=== PATIENT | female | born 1950 | race Caucasian/White ===

== ENCOUNTER 2018-06-21 06:07 | Day surgery (SDC) | payer OTHER, MEDICAID ==
[~2018-06-21] VITALS: Ht 160 cm; Wt 53.2 kg
[2018-06-21 06:37] LABS: BASOPHILS 0.6 % (0-2); EOSINOPHILS 2.7 % (0-7); HEMOGLOBIN 13.1 g/dL (12-16); IMMATURE GRANULOCYTES 0.1 % (0-5); LYMPHOCYTES 30.3 % (15-50); MCH 31.3 pg (26.0-34.0); MCHC 32.8 g/dL (31.0-37.0); MCV 95.5 fL (80.0-100.0); MEAN PLATELET VOLUME 9.6 fL (7.4-10.4); MONOCYTES 9.5 % (2-11); NEUTROPHILS 56.8 % (40-80); PLATELET COUNT 325 10x3/uL (130-400); RBC 4.19 10x6/uL (4.00-5.40); RDW 14.3 % (11.5-14.5); WBC 8.3 10x3/uL (4.8-10.8)
[2018-06-21 07:12] LABS: ANION GAP 16.1 mmol/L (8-16); CALCIUM 10.9 mg/dL (8.5-10.1); CARBON DIOXIDE 23.2 mmol/L (21.0-32.0); POTASSIUM - SERUM 4.3 mmol/L (3.5-5.1)
[2018-06-21 07:33] LABS: APTT 34.2 SECONDS (22.8-39.4)
[2018-06-21 07:43] LABS: INR 0.93 (0.85-1.17)
[2018-06-21] MEDS ORDERED: NIASPAN1000 MG PO (07:56)
[2018-06-21] MEDS ORDERED: LIDOCAINE 5 % O35 GM TOPICAL (07:57)
[2018-06-21] MEDS ORDERED: ELAVIL10 MG PO (07:57)
[2018-06-21] MEDS ORDERED: FENOFIBRATE160 MG PO (07:58)
[2018-06-21] MEDS ORDERED: CATAPRES0.3 MG PO (07:58)
[2018-06-21] MEDS ORDERED: COZAAR50 MG PO (07:58)
[2018-06-21] MEDS ORDERED: CARDIZEM CD240 MG PO (07:58)
[2018-06-21] MEDS ORDERED: OMEPRAZOLE20 M1 PO (07:59)
[2018-06-21] MEDS ORDERED: METFORMIN HCL500 M1 PO (07:59)
[2018-06-21] MEDS ORDERED: MESTINON60 MG PO (07:59)
[2018-06-21] MEDS ORDERED: ULTRAM50 MG PO (08:00)
[2018-06-21] MEDS ORDERED: NORVASC5 MG PO (08:00)
[2018-06-21] MEDS ORDERED: ZOCOR40 MG PO (08:00)
[2018-06-21] MEDS ORDERED: COMBIVENT RESPIM4 GM INH (08:00)
[2018-06-21] MEDS ORDERED: MAG-OX 400 MG400 MG PO (08:01)
[2018-06-21 08:07] VITALS: BP 173/76; Ht 160 cm; Wt 53.2 kg
--- NOTE | 2018-06-21 14:01 | OP ---
PATIENT NAME: KISHOR BENITES MEDICAL RECORD: [id number] :50 LOCATION:[facility] ADMISSION DATE: SURGEON: GARDENIA MADRIGAL DO DATE OF OPERATION: 06/21/2018 PROCEDURE: Colonoscopy with polypectomy. INDICATIONS FOR PROCEDURE: Stool DNA based colorectal cancer screen positive, hematochezia, irregular bowel habits. SCOPE: Olympus video pediatric colonoscope. MEDICATIONS: Propofol 500 mg IV per anesthesia. WITHDRAWAL TIME: 16 minutes. ESTIMATED BLOOD LOSS: Minimal. COMPLICATIONS: None. FINDINGS: Informed consent was given. The patient was made comfortable with the above medication. After reaching an adequate level of sedation by slow IV push, the patient was placed on her left side. A digital rectal examination was performed and was normal. The endoscope was then advanced under direct visualization through the rectum to the cecum, confirmed by the presence of the appendiceal orifice and ileocecal valve. The endoscope was slowly withdrawn and mucosa was carefully examined. There were 4 polyps visualized on today's examination. They were all benign appearing and sessile and ranged in size from 2-4 mm in diameter. One was located in the cecum. Three were located in the sigmoid colon. They were all removed completely with cauterization using hot forceps. There was evidence of severe diverticulosis involving the descending and sigmoid colon. There was no evidence of diverticulitis. Retroflexion was performed in the rectum with visualization of grade II internal hemorrhoids without bleeding. The endoscope was withdrawn from the patient. The patient tolerated the procedure well and there were no complications. IMPRESSION: 1. Four polyps as described above, removed using hot forceps. 2. Severe diverticulosis of the descending and sigmoid colon. 3. Grade II internal hemorrhoids without bleeding. PLAN AND RECOMMENDATIONS: 1. Discharge home when recovery parameters are met. 2. Follow up biopsy specimen results. 3. High fiber diet. 4. Supplement diet with 1 tablespoon of fiber daily. 5. Continue current medications. 6. Recall colonoscopy in 3-5 years for surveillance based on a personal history of polyps. 7. Notify the GI clinic if continued symptoms of hemorrhoids while on fiber supplementation. Can consider referral to surgery regarding the hemorrhoids. TRANSINT:[id number] Voice Confirmation ID: [id number] DOCUMENT ID: [id number] OPERATIVE REPORT [id number] KISHOR BENITES GARDENIA MADRIGAL DO at 1401 CC: [id number] DICTATION DATE: 06/21/18 0955 EMERGENCY MANAGEMENT CONSULTANT: 06/21/18 1133 [facility] 06/21/18 [id number] [place] [address]
== END 2018-06-21 10:50 | disposition home or self-care (01) ==
LOC: D.OPS 06:07
PROVIDERS: Anesthesiology; ATTEND Internal Medicine Gastroenterology
DX: K63.5 Polyp of colon (principal); K57.30 Diverticulosis of large intestine without perforation or abscess without bleeding; K64.1 Second degree hemorrhoids; Z01.812 Encounter for preprocedural laboratory examination

== ENCOUNTER 2018-06-28 05:44 | Day surgery (SDC) | payer OTHER, MEDICAID ==
[~2018-06-28] VITALS: Ht 160 cm; Wt 54.5 kg
[~2018-06-28 05:44] MED LIST: CARDIZEM CD240 MG PO; CATAPRES0.3 MG PO; COMBIVENT RESPIM4 GM INH; COZAAR50 MG PO; ELAVIL10 MG PO; FENOFIBRATE160 MG PO; LIDOCAINE 5 % O35 GM TOPICAL; MAG-OX 400 MG400 MG PO; MESTINON60 MG PO; METFORMIN HCL500 M1 PO; NIASPAN1000 MG PO; NORVASC5 MG PO; OMEPRAZOLE20 M1 PO; ULTRAM50 MG PO; ZOCOR40 MG PO
[2018-06-28 06:17] LABS: ANION GAP 14.6 mmol/L (8-16); CARBON DIOXIDE 25.6 mmol/L (21.0-32.0); CREATININE - SERUM 1.1 mg/dL (0.6-1.3); POTASSIUM - SERUM 4.2 mmol/L (3.5-5.1)
[2018-06-28 06:29] LABS: BASOPHILS 0.7 % (0-2); HEMATOCRIT 39.2 % (36.0-48.0); HEMOGLOBIN 12.8 g/dL (12-16); IMMATURE GRANULOCYTES 0.3 % (0-5); LYMPHOCYTES 35.8 % (15-50); MCH 31.3 pg (26.0-34.0); MCHC 32.7 g/dL (31.0-37.0); MCV 95.8 fL (80.0-100.0); MEAN PLATELET VOLUME 9.7 fL (7.4-10.4); MONOCYTES 8.6 % (2-11); NEUTROPHILS 51.6 % (40-80); PLATELET COUNT 352 10x3/uL (130-400); RBC 4.09 10x6/uL (4.00-5.40); RDW 14.3 % (11.5-14.5); WBC 7.3 10x3/uL (4.8-10.8)
[2018-06-28 07:00] VITALS: BP 136/64; Ht 160 cm; Wt 54.5 kg
--- NOTE | 2018-06-28 08:36 | NUR ---
0815-RECD TO ROOM [facility] 0820-DR MADRIGAL IN TO REPORT FINDINGS 0825-UP TO BATHROOM, VOIDS 0830-FULL LIQUIDS SERVED
--- NOTE | 2018-07-05 18:24 | OP ---
PATIENT NAME: KISHOR BENITES MEDICAL RECORD: [id number] :50 LOCATION:[facility] ADMISSION DATE: SURGEON: GARDENIA MADRIGAL DO DATE OF OPERATION: 06/28/2018 PROCEDURE: EGD with biopsies. 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 SCOPE: Olympus video gastroscope. MEDICATIONS: Propofol 260 mg IV per anesthesia. ESTIMATED BLOOD LOSS: Minimal. COMPLICATIONS: None. FINDINGS: Informed consent was given. The patient was made comfortable with the above medication. After reaching an adequate level of sedation by slow IV push, the patient was placed on her left side. The endoscope was advanced under direct visualization through the mouth to the second portion of the duodenum. The upper and middle thirds of the esophagus appeared normal. In the distal third of the esophagus, there was apparent Carmichael's esophagus present. This was a long segment Carmichael's located from approximately 28-32 cm from the incisors. There were a few squamous islands, but no obvious dysplasia findings on endoscopy. Multiple biopsies were taken at 28 cm, 30 cm, and 32 cm. The endoscope was then advanced into the stomach and retroflexed to view the cardia, where a medium sized sliding hiatal hernia was present. There were no associated ulcers or erosions with this hernia. In the stomach, there were scattered areas of erythema and congestion consistent with gastritis. Random cold forceps biopsies were taken to submit for histopathology and to rule out the presence of H. pylori. The endoscope was advanced beyond the pylorus into the duodenum, which appeared normal down to the second portion. The endoscope was then withdrawn from the patient. The patient tolerated the procedure well and there were no complications. IMPRESSION: 1. Carmichael's esophagus. This is a long segment from 28-32 cm with multiple squamous islands. There were no obvious dysplastic changes endoscopically. Multiple biopsies taken at 28, 30, and 32 cm from the incisors. 2. Medium size sliding hiatal hernia. 3. Gastritis. PLAN AND RECOMMENDATIONS: 1. Discharge home when recovery parameters are met. 2. GERD diet and reflux precautions. 3. Consider surgical repair of hiatal hernia. 4. Continue current medications including omeprazole 20 mg daily. 5. The patient will need a repeat EGD in 2 years unless pathology from biopsies taken today indicate otherwise. TRANSINT:[id number] Voice Confirmation ID: [id number] DOCUMENT ID: [id number] OPERATIVE REPORT [id number] KISHOR BENITES,GARDENIA Gallardo DO at 1824 CC: [id number] DICTATION DATE: 06/28/18 0808 INSPECTOR CHIEF: 06/28/18 1234 [facility] 06/28/18 [place] [id number] [place] [id number]
== END 2018-06-28 08:45 | disposition home or self-care (01) ==
LOC: D.OPS 05:44
PROVIDERS: Anesthesiology; ATTEND Internal Medicine Gastroenterology
DX: K22.70 Barrett's esophagus without dysplasia (principal); K44.9 Diaphragmatic hernia without obstruction or gangrene; K29.50 Unspecified chronic gastritis without bleeding; Z01.812 Encounter for preprocedural laboratory examination

== ENCOUNTER 2020-05-04 12:03 | Inpatient (IN) | payer MEDICARE, MEDICAID ==
[~2020-05-04] VITALS: Ht 160 cm; Wt 50.8 kg
[2020-05-04 12:33] LABS: BASOPHILS 0.1 % (0-2); EOSINOPHILS 0.3 % (0-7); HEMATOCRIT 35.8 % (36.0-48.0); HEMOGLOBIN 11.5 g/dL (12-16); IMMATURE GRANULOCYTES 0.5 % (0-5); LYMPHOCYTE ABS# 1.54 10x3/uL (1.18-3.74); LYMPHOCYTES 7.8 % (15-50); MCH 31.5 pg (26.0-34.0); MCHC 32.1 g/dL (31.0-37.0); MCV 98.1 fL (80.0-100.0); MEAN PLATELET VOLUME 8.9 fL (7.4-10.4); MONOCYTES 6.9 % (2-11); NEUTROPHIL ABS# 16.59 10x3/uL (1.56-6.13); NEUTROPHILS 84.4 % (40-80); PLATELET COUNT 392 10x3/uL (130-400); RBC 3.65 10x6/uL (4.00-5.40); RDW 13.4 % (11.5-14.5); WBC 19.7 10x3/uL (4.8-10.8)
[2020-05-04 12:43] LABS: CALC OSMOLALITY 276 mosm/kg (275-300); CARBON DIOXIDE 25.9 mmol/L (21.0-32.0); CHLORIDE - SERUM 100 mmol/L (98-107); CREATININE - SERUM 1.7 mg/dL (0.6-1.3); GLUCOSE 106 mg/dL (74-106); POTASSIUM - SERUM 3.7 mmol/L (3.5-5.1); SODIUM 137 mmol/L (136-145); UREA NITROGEN 21 mg/dL (7-18); eGFR NON AFRICAN AMERICAN 32 mL/min (90-120)
[2020-05-04 12:49] LABS: APTT 31.3 SECONDS (22.8-39.4)
[2020-05-04 12:50] LABS: INR 0.97 (0.85-1.17); PROTIME 11.9 SECONDS (11.6-15.0)
[2020-05-04 13:00] LABS: ALBUMIN 3.5 g/dL (3.4-5.0); ALKALINE PHOSPHATASE 65 U/L (30-120); ALT (SGPT) 18 U/L (10-68); BILIRUBIN - TOTAL 0.33 mg/dL (0.2-1.3); CKMB 0.3 U/L (0.0-3.6); CREATINE KINASE 52 UL (21-215); PROTEIN - SERUM 8.2 g/dL (6.4-8.2)
[2020-05-04 13:01] LABS: TROPONIN-I < 0.017 ng/mL (0.000-0.060)
--- NOTE | 2020-05-04 21:55 | NUR ---
ASKED PATIENT PER REQUEST OF DR. AMADOR IF SHE HAD A TETNUS SHOT IN THE LAST FIVE YEARS. SHE HAD NOT. ORDERING SHOT NOW.
[2020-05-05] VITALS (11 sets, daily range): BP systolic 111–183; BP diastolic 48–75
[2020-05-05 07:32] LABS: BASOPHILS 0.2 % (0-2); HEMATOCRIT 32.3 % (36.0-48.0); HEMOGLOBIN 10.2 g/dL (12-16); IMMATURE GRANULOCYTES 0.4 % (0-5); LYMPHOCYTES 10.6 % (15-50); MCH 30.7 pg (26.0-34.0); MCHC 31.6 g/dL (31.0-37.0); MCV 97.3 fL (80.0-100.0); MEAN PLATELET VOLUME 8.9 fL (7.4-10.4); NEUTROPHIL ABS# 8.08 10x3/uL (1.56-6.13); NEUTROPHILS 77.8 % (40-80); PLATELET COUNT 381 10x3/uL (130-400); RBC 3.32 10x6/uL (4.00-5.40); RDW 13.4 % (11.5-14.5)
[2020-05-05 07:43] LABS: WBC 10.4 10x3/uL (4.8-10.8)
[2020-05-05 07:58] LABS: ALBUMIN 2.7 g/dL (3.4-5.0); ANION GAP 14.9 mmol/L (8-16); BILIRUBIN - TOTAL 0.57 mg/dL (0.2-1.3); CALCIUM 10.6 mg/dL (8.5-10.1); CARBON DIOXIDE 23.9 mmol/L (21.0-32.0); CREATININE - SERUM 1.5 mg/dL (0.6-1.3); POTASSIUM - SERUM 3.8 mmol/L (3.5-5.1); PROTEIN - SERUM 6.9 g/dL (6.4-8.2)
--- NOTE | 2020-05-05 15:12 | NUR ---
TO MRI @ 1512. DRIVER/SALES WORKERS WILL TRANSPORT TO HER ROOM AFTER MRI.
[2020-05-05] MEDS ORDERED: GLUCOPHAGE500 MG PO (16:10)
[2020-05-05] MEDS ORDERED: FERROUS SULFAT325 MG PO (16:14)
[2020-05-06 00:41] VITALS: BP 110/67
[2020-05-06 04:39] VITALS: BP 142/61
--- NOTE | 2020-05-06 05:27 | NUR ---
I have reviewed this patient and I concur with the Shift Assessment completed by the Licensed Practical Nurse today this shift.
--- NOTE | 2020-05-06 08:00 | NUR ---
REC'D IN BED AWAKE AND ALERT. RESP EVEN AND UNLABORED WITH NO DISTRESS NOTED. CAN EXPRESS NEEDS AND WANT. NO C/O NOTED OR VOICED. ASSESSMENT COMPLETED. C/L IN REACH AT BEDSIDE.
[2020-05-06 08:32] VITALS: BP 156/72
[2020-05-06 09:48] LABS: BASOPHILS 0.3 % (0-2); EOSINOPHILS 1.3 % (0-7); HEMATOCRIT 32.7 % (36.0-48.0); HEMOGLOBIN 10.5 g/dL (12-16); IMMATURE GRANULOCYTES 0.3 % (0-5); LYMPHOCYTE ABS# 1.29 10x3/uL (1.18-3.74); MCH 31.3 pg (26.0-34.0); MCHC 32.1 g/dL (31.0-37.0); MCV 97.3 fL (80.0-100.0); MEAN PLATELET VOLUME 8.6 fL (7.4-10.4); MONOCYTES 8.1 % (2-11); NEUTROPHIL ABS# 7.62 10x3/uL (1.56-6.13); PLATELET COUNT 435 10x3/uL (130-400); RBC 3.36 10x6/uL (4.00-5.40); RDW 13.3 % (11.5-14.5); WBC 9.9 10x3/uL (4.8-10.8)
[2020-05-06 10:11] LABS: ALBUMIN 2.9 g/dL (3.4-5.0); ANION GAP 16.6 mmol/L (8-16); BILIRUBIN - TOTAL 0.38 mg/dL (0.2-1.3); CALCIUM 10.5 mg/dL (8.5-10.1); CARBON DIOXIDE 25.2 mmol/L (21.0-32.0); CREATININE - SERUM 1.5 mg/dL (0.6-1.3); POTASSIUM - SERUM 3.8 mmol/L (3.5-5.1); PROTEIN - SERUM 6.8 g/dL (6.4-8.2)
[2020-05-06 13:02] VITALS: BP 104/42
[2020-05-06 13:52] VITALS: Ht 160 cm; Wt 50.8 kg
[2020-05-06 18:57] VITALS: BP 129/46
[2020-05-06 20:44] VITALS: BP 139/53
[2020-05-07 04:49] VITALS: BP 115/45
[2020-05-07 08:44] VITALS: BP 98/53
[2020-05-07 11:38] LABS: BASOPHILS 0.4 % (0-2); EOSINOPHILS 1.8 % (0-7); HEMATOCRIT 29.3 % (36.0-48.0); HEMOGLOBIN 9.5 g/dL (12-16); IMMATURE GRANULOCYTES 0.6 % (0-5); LYMPHOCYTE ABS# 1.55 10x3/uL (1.18-3.74); LYMPHOCYTES 16.7 % (15-50); MCH 31.6 pg (26.0-34.0); MCHC 32.4 g/dL (31.0-37.0); MCV 97.3 fL (80.0-100.0); MEAN PLATELET VOLUME 8.7 fL (7.4-10.4); MONOCYTES 7.6 % (2-11); NEUTROPHIL ABS# 6.76 10x3/uL (1.56-6.13); NEUTROPHILS 72.9 % (40-80); PLATELET COUNT 413 10x3/uL (130-400); RBC 3.01 10x6/uL (4.00-5.40); RDW 13.4 % (11.5-14.5); WBC 9.3 10x3/uL (4.8-10.8)
[2020-05-07 11:58] LABS: ALBUMIN 2.6 g/dL (3.4-5.0); ANION GAP 15.4 mmol/L (8-16); BILIRUBIN - TOTAL 0.22 mg/dL (0.2-1.3); CALCIUM 9.9 mg/dL (8.5-10.1); CARBON DIOXIDE 19.8 mmol/L (21.0-32.0); CREATININE - SERUM 1.7 mg/dL (0.6-1.3); POTASSIUM - SERUM 4.2 mmol/L (3.5-5.1); PROTEIN - SERUM 5.7 g/dL (6.4-8.2)
[2020-05-07 12:30] VITALS: BP 90/47
[2020-05-07 17:24] VITALS: BP 105/43
--- NOTE | 2020-05-07 18:45 | NUR ---
PATIENT IN BED WITH IV INTACT. NO COMPLAINTS OR SIGNS OF DISTRESS. CALL LIGHT WITHIN REACH.
[2020-05-07 20:14] VITALS: BP 113/46
--- NOTE | 2020-05-07 23:15 | NUR ---
pt awake, alert lying in bed. ambualted to BR without assist, reports her right arm is much better today. denies any issues at thsi time
[2020-05-07 23:29] LABS: BILIRUBIN NEGATIVE (NEGATIVE); KETONE NEGATIVE (NEGATIVE); NITRITE NEGATIVE (NEGATIVE); UROBILINOGEN NORMAL mg/dL (< 2)
[2020-05-08] VITALS: BP 107/50
[2020-05-08 05:18] VITALS: BP 102/46
[2020-05-08 08:25] VITALS: BP 114/54
[2020-05-08 11:48] VITALS: BP 127/77
[2020-05-08 15:58] VITALS: BP 137/61
--- NOTE | 2020-05-08 18:45 | NUR ---
PATIENT IN BED WITH IV INTACT. NO COMPLAINTS OR SIGNS OF DISTRESS. RIGHT ARM ELEVATED ON PILLOW. CALL LIGHT WITHIN REACH.
[2020-05-08 20:00] VITALS: BP 128/59
--- NOTE | 2020-05-08 21:59 | NUR ---
Patient is lying comfortably in bed at this time. No pain nor distress noted. Bed in low position. Call berger in reach.
[2020-05-09 04:00] VITALS: BP 167/73
[2020-05-09 07:02] LABS: BASOPHILS 0.1 % (0-2); EOSINOPHILS 1.6 % (0-7); HEMATOCRIT 28.7 % (36.0-48.0); HEMOGLOBIN 9.1 g/dL (12-16); IMMATURE GRANULOCYTES 0.6 % (0-5); LYMPHOCYTE ABS# 1.49 10x3/uL (1.18-3.74); LYMPHOCYTES 10.8 % (15-50); MCHC 31.7 g/dL (31.0-37.0); MCV 97.6 fL (80.0-100.0); MEAN PLATELET VOLUME 8.5 fL (7.4-10.4); MONOCYTES 9.9 % (2-11); NEUTROPHIL ABS# 10.58 10x3/uL (1.56-6.13); PLATELET COUNT 441 10x3/uL (130-400); RBC 2.94 10x6/uL (4.00-5.40); RDW 13.4 % (11.5-14.5)
[2020-05-09 07:03] LABS: WBC 13.8 10x3/uL (4.8-10.8)
[2020-05-09 07:16] LABS: ALBUMIN 2.4 g/dL (3.4-5.0); BILIRUBIN - TOTAL 0.21 mg/dL (0.2-1.3); CALCIUM 10.1 mg/dL (8.5-10.1); CARBON DIOXIDE 22.1 mmol/L (21.0-32.0); CREATININE - SERUM 1.6 mg/dL (0.6-1.3); POTASSIUM - SERUM 4.1 mmol/L (3.5-5.1); PROTEIN - SERUM 6.4 g/dL (6.4-8.2)
[2020-05-09 08:33] VITALS: BP 157/76
[2020-05-09 12:30] VITALS: BP 150/82
--- NOTE | 2020-05-09 14:15 | NUR ---
Nutrition follow-up: visited with pt during breakfast Diet order: consistent CHO Pt reports good appetite; happy with meals provided No issues with chewing or swallowing PO intake 50-75% of meals since admit Labs reviewed WT: 112#; pt reports wt has been stable with no wt loss +BM Will continue to provide food choices and honor food preferences within diet restrictions. RDN follow-up: 05/14/20
[2020-05-09 16:52] VITALS: BP 148/79
[2020-05-09 20:16] VITALS: BP 170/71
[2020-05-10 01:19] VITALS: BP 129/52
--- NOTE | 2020-05-10 03:00 | NUR ---
I have reviewed this patient and I concur with the Shift Assessment completed by the Licensed Practical Nurse today this shift.
[2020-05-10 05:36] VITALS: BP 131/59
[2020-05-10 08:22] VITALS: BP 127/56
--- NOTE | 2020-05-10 09:00 | NUR ---
ASSESSMENT PER FLOW SHEET. PATIENT IS WITHOUT DISTRESS.MONITOR FOR NEEDS.CALL LIGHT IN REACH.
[2020-05-10 11:54] VITALS: BP 129/67
--- NOTE | 2020-05-10 16:04 | NUR ---
DENIES NEEDS AT PRESENT. CALL LIGHT IN REACH
[2020-05-10 17:05] VITALS: BP 147/61
--- NOTE | 2020-05-10 18:47 | NUR ---
PATIENT IS WITHOUT NEEDS,WITHOUT CHANGE. CONT PLAN OF CARE
--- NOTE | 2020-05-10 19:15 | NUR ---
RECEIVED REPORT, ASSUMED CARE, BREATHING EVEN UNLABORED, CALL LIGHT IN REACH, NO S/S OF DISTRESS NOTED, DENIES NEEDS, IV PATENT, ENCOURAGED PT TO NOTIFY STAFF OF ANY NEEDS
[2020-05-10 21:51] VITALS: BP 140/64
--- NOTE | 2020-05-11 00:24 | NUR ---
IV LEAKING, ATTEMPTED TO RESTART, PT REFUSED ANY MORE ATTEMPTS, PHYSICIAN PAGED, STATED TO LEAVE IV OUT UNTIL AM, WILL REEVALUATE IN AM
--- NOTE | 2020-05-11 01:04 | NUR ---
HEAT PACK APPLIED. ELEVATED ON PILLOWS
[2020-05-11 01:25] VITALS: BP 118/52
[2020-05-11 05:47] VITALS: BP 119/50
[2020-05-11 05:56] LABS: BASOPHILS 0.2 % (0-2); EOSINOPHILS 2.1 % (0-7); HEMOGLOBIN 8.8 g/dL (12-16); IMMATURE GRANULOCYTES 0.6 % (0-5); LYMPHOCYTE ABS# 1.57 10x3/uL (1.18-3.74); LYMPHOCYTES 14.6 % (15-50); MCH 30.7 pg (26.0-34.0); MCHC 31.4 g/dL (31.0-37.0); MCV 97.6 fL (80.0-100.0); MEAN PLATELET VOLUME 8.8 fL (7.4-10.4); MONOCYTES 9.2 % (2-11); NEUTROPHIL ABS# 7.89 10x3/uL (1.56-6.13); NEUTROPHILS 73.3 % (40-80); PLATELET COUNT 493 10x3/uL (130-400); RBC 2.87 10x6/uL (4.00-5.40); RDW 13.5 % (11.5-14.5); WBC 10.8 10x3/uL (4.8-10.8)
[2020-05-11 06:46] LABS: ALBUMIN 2.3 g/dL (3.4-5.0); ANION GAP 15.5 mmol/L (8-16); BILIRUBIN - TOTAL 0.21 mg/dL (0.2-1.3); CALCIUM 10.6 mg/dL (8.5-10.1); CARBON DIOXIDE 21.6 mmol/L (21.0-32.0); CREATININE - SERUM 1.6 mg/dL (0.6-1.3); POTASSIUM - SERUM 4.1 mmol/L (3.5-5.1); PROTEIN - SERUM 6.6 g/dL (6.4-8.2)
--- NOTE | 2020-05-11 06:54 | NUR ---
I have reviewed this patient and I concur with the Shift Assessment completed by the Licensed Practical Nurse today this shift.
--- NOTE | 2020-05-11 09:00 | NUR ---
ASSESSMENT PER FLOW SHEET. PATIENT IS WITHOUT DISTRESS.MONITOR FOR NEEDS.CALL LIGHT IN REACH
[2020-05-11 09:04] VITALS: BP 122/61
[2020-05-11 12:43] VITALS: BP 103/50
--- NOTE | 2020-05-11 13:00 | NUR ---
IV SITED TO LEFT UPPER ARM X1 STICK, ASEPTIC TECH. 20G. IV ABX ORDERED
[2020-05-11 16:35] VITALS: BP 121/56
[2020-05-11 20:51] VITALS: BP 119/68
--- NOTE | 2020-05-11 22:44 | NUR ---
RECEIVED REPORT, ASSUMED CARE, BREATHING EVEN UNLABORED, CALL LIGHT IN REACH, NO S/S OF DISTRESS NOTED, DENIES NEEDS, IV PATENT, ENCOURAGED PT TO NOTIFY STAFF OF ANY NEEDS, AT BEDSIDE
[2020-05-12 06:36] VITALS: BP 129/64
[2020-05-12 08:00] VITALS: BP 135/72
[2020-05-12 11:17] LABS: BASOPHILS 0.3 % (0-2); EOSINOPHILS 2.2 % (0-7); HEMATOCRIT 27.3 % (36.0-48.0); HEMOGLOBIN 8.7 g/dL (12-16); IMMATURE GRANULOCYTES 0.4 % (0-5); LYMPHOCYTE ABS# 1.33 10x3/uL (1.18-3.74); LYMPHOCYTES 12.6 % (15-50); MCHC 31.9 g/dL (31.0-37.0); MCV 97.2 fL (80.0-100.0); MEAN PLATELET VOLUME 8.5 fL (7.4-10.4); MONOCYTES 8.5 % (2-11); NEUTROPHIL ABS# 8.05 10x3/uL (1.56-6.13); PLATELET COUNT 523 10x3/uL (130-400); RBC 2.81 10x6/uL (4.00-5.40); RDW 13.3 % (11.5-14.5); RETIC 1.09 % (0.45-2.28); WBC 10.6 10x3/uL (4.8-10.8)
[2020-05-12 11:33] LABS: % SATURATION 9 % (15-55); IRON 18 ug/dl (35-150); TOTAL IRON BIND CAPACITY 182 ug/dl (260-445); UNSAT IRON BIND CAPACITY 164 ug/dl (150-375)
[2020-05-12 11:59] LABS: ALBUMIN 2.3 g/dL (3.4-5.0); ANION GAP 12.2 mmol/L (8-16); BILIRUBIN - TOTAL 0.14 mg/dL (0.2-1.3); CALCIUM 10.6 mg/dL (8.5-10.1); CARBON DIOXIDE 24.9 mmol/L (21.0-32.0); CREATININE - SERUM 1.8 mg/dL (0.6-1.3); POTASSIUM - SERUM 4.1 mmol/L (3.5-5.1); PROTEIN - SERUM 6.7 g/dL (6.4-8.2)
[2020-05-12 12:00] VITALS: BP 126/70
[2020-05-12 15:00] VITALS: BP 123/71
--- NOTE | 2020-05-12 16:59 | NUR ---
I have reviewed this patient and I concur with the Shift Assessment completed by the Licensed Practical Nurse today this shift.
--- NOTE | 2020-05-12 19:45 | NUR ---
RECEIVED BEDSIDE REPORT. PT LAYING IN BED A&O X4. PIV TO LEFT UPPER ARM, PATENT AND INFUSING, NO REDNESS OR SWELLING. FELINE BITE TO RUE, SLIGHTLY SWOLLEN AND RED. PT ABLE TO AMBULATE AD KAUSHIK. EDUCATED PT ON CL AND NEEDS, VERBALIZED UNDERSTANDING. BED LOW, CL IN REACH.
[2020-05-12 20:00] VITALS: BP 113/59
[2020-05-13 04:00] VITALS: BP 133/57
--- NOTE | 2020-05-13 10:34 | MORECARE ---
CASE MANAGEMENT DISCHARGE SUMMARY PATIENT: KISHOR BENIETS UNIT: [id number] ADM DATE: 05/04/20 AGE: 69 : 50 SEX: F ROOM/BED: D.2216 AUTHOR: ALFRED KENDALL PHYSICIAN: REFERRING PHYSICIAN: ROBERTA PANDEY MD DATE OF SERVICE: 05/13/20 Discharge Plan Patient Name: KISHOR BENITES Facility: [facility]:[place] : 1950 Planned Disposition: Home or Self Care Anticipated Discharge Date: Discharge Date: Expected LOS: Initial Reviewer: [email or web address] Initial Review Date: 05/04/2020 Generated: 05/13/20 11:33 am Comments DCP- Discharge Planning Updated by [email or web address]: Yomaira Guallpa on 05/13/20 9:[address] Patient Name: KISHOR BENITES Admission Status: ER Accout number: [id number] Admission Date: 05-04-2020 : 1950 Admission Diagnosis:CELLULITIS OF RIGHT UPPER LIMB Attending: ROBERTA PANDEY Current LOS: 9 Anticipated DC Date: Planned Disposition: Home or Self Care Primary Insurance: [facility] [employer] Discharge Planning Comments: CM met with patient to complete initial dc planning assessment. CM educated patient on the CM role and verbal consent given by patient to complete assessment. Patient lives at home by herself where she states she is independent with her care. At discharge patient plans to return home and feels this is a safe discharge. Her boyfriend will be her driver/guide home today. CM discussed availability of home health, rehab services, and medical equipment. She did not want home health. She has a shower chair and a cane at home. IMM served and explained copy in chart. Patient denied known discharge needs at this time. CM will continue to follow and will assist as needed with dc plans/needs Egg Crater: Yomaira Guallpa DCPIA - Discharge Planning Initial Assessment Updated by [email or web address]: Yomaira Guallpa on 05/13/20 10:29 am * Is the patient Alert and Oriented? Yes * PCP ANDREW * Pharmacy [facility] * Preadmission Environment Home Alone * ADLs Independent * Equipment Cane Shower Chair * List name and contact numbers for known caregivers / representatives who currently or will assist patient after discharge: LISBETH SIGALA ( DAUGHTER) [phone] * Verbal permission to speak to the caregivers and representatives has been obtained from the patient. N/A * Community resources currently utilized None * Additional services required to return to the preadmission environment? No * Can the patient safely return to the preadmission environment? Yes * Has this patient been hospitalized within the prior 30 days at any hospital? No Coverage Notice Reviewer: [email or web address] Chi Guallpa Notice Issued Date-Time: 05/13/2020 10:20 Notice Type: IM Discharge Notice Notice Delivered To: Patient Relationship to Patient: Steam Fitter Supervisor Name: Delivery Method: HAND - Hand Delivered Rosio Days: Prior Verbal Notification: Recipient Understood Notice: Yes Recipient Signature: Yes Med Rec Note Co-signed by Attending: Coverage Notice Comment: Patient Name: KISHOR BENITES Page [phone] at 1034 All edits/amendments must be made on the electronic document DICTATION DATE: 05/13/20 1034 RENTAL CLERK: THEE 05/13/20 1034 RPT#: [id number] DC DATE: STATUS: ADM IN [facility] [address] [place] [address] END OF REPORT
--- NOTE | 2020-05-13 10:54 | NUR ---
WENT OVER DC PAPERWORK WITH PATIENT, ALL QUESTIONS ANSWERED, DC IV TO RT UPPER ARM WITH CATHETER INTACT. CONTINUE WITH PLAN OF CARE
--- NOTE | 2020-05-15 16:52 | MORECARE ---
CASE MANAGEMENT DISCHARGE SUMMARY PATIENT: KISHOR BENITES UNIT: [id number] ADM DATE: 05/04/20 AGE: 69 : 50 SEX: F ROOM/BED: D.2216 AUTHOR: ALFRED KENDALL PHYSICIAN: REFERRING PHYSICIAN: ROBERTA PANDEY MD DATE OF SERVICE: 05/15/20 Discharge Plan Patient Name: KISHOR BENITES Facility: [facility]:[place] : 1950 Planned Disposition: Home or Self Care Anticipated Discharge Date: Discharge Date: 05/13/2020 Expected LOS: Initial Reviewer: [email or web address] Initial Review Date: 05/04/2020 Generated: 05/15/20 5:51 pm Comments DCP- Discharge Planning Updated by [email or web address]: Yomaira Guallpa on 05/13/20 9:[address] Patient Name: KISHOR BENITES Admission Status: ER Accout number: [id number] Admission Date: 05-04-2020 : 1950 Admission Diagnosis:CELLULITIS OF RIGHT UPPER LIMB Attending: ROBERTA PANDEY Current LOS: 9 Anticipated DC Date: Planned Disposition: Home or Self Care Primary Insurance: [facility] MEDICARE SOLUTIONS Discharge Planning Comments: CM met with patient to complete initial dc planning assessment. CM educated patient on the CM role and verbal consent given by patient to complete assessment. Patient lives at home by herself where she states she is independent with her care. At discharge patient plans to return home and feels this is a safe discharge. Her boyfriend will be her boat driver home today. CM discussed availability of home health, rehab services, and medical equipment. She did not want home health. She has a shower chair and a cane at home. IMM served and explained copy in chart. Patient denied known discharge needs at this time. CM will continue to follow and will assist as needed with dc plans/needs Shag Truck Driver: Yomaira Guallpa DCPIA - Discharge Planning Initial Assessment Updated by [email or web address]: Yomaira Guallpa on 05/13/20 10:29 am * Is the patient Alert and Oriented? Yes * PCP ANDREW * Pharmacy [facility] * Preadmission Environment Home Alone * ADLs Independent * Equipment Cane Shower Chair * List name and contact numbers for known caregivers / representatives who currently or will assist patient after discharge: LISBETH SIGALA ( DAUGHTER) [phone] * Verbal permission to speak to the caregivers and representatives has been obtained from the patient. N/A * Community resources currently utilized None * Additional services required to return to the preadmission environment? No * Can the patient safely return to the preadmission environment? Yes * Has this patient been hospitalized within the prior 30 days at any hospital? No Coverage Notice Reviewer: [email or web address] Chi Guallpa Notice Issued Date-Time: 05/13/2020 10:20 Notice Type: IM Discharge Notice Notice Delivered To: Patient Relationship to Patient: Rn Transfer Name: Delivery Method: HAND - Hand Delivered Rosio Days: Prior Verbal Notification: Recipient Understood Notice: Yes Recipient Signature: Yes Med Rec Note Co-signed by Attending: Coverage Notice Comment: Last DP export: 05/13/20 9:34 am Patient Name: IKSHOR BENITES Page [phone] at 1652 All edits/amendments must be made on the electronic document DICTATION DATE: 05/15/201650 BOAT FINISHER: THEE 05/15/201650 RPT#: [id number] DC DATE:05/13/20 STATUS: DIS IN [facility] [address] [place] [address] END OF REPORT
== END 2020-05-13 11:19 | disposition home or self-care (01) | DRG 603 ==
LOC: D.ER 12:03 → D.EDHOLD 15:00 → D.MS 15:00
PROVIDERS: Family Medicine; ADMIT Legal Medicine; ATTEND Legal Medicine
DX: L03.113 Cellulitis of right upper limb (principal); S61.451A Open bite of right hand, initial encounter; W55.01XA Bitten by cat, initial encounter; I12.9 Hypertensive chronic kidney disease with stage 1 through stage 4 chronic kidney disease, or unspecified chronic kidney disease; N18.9 Chronic kidney disease, unspecified; G70.00 Myasthenia gravis without (acute) exacerbation; E83.52 Hypercalcemia; D72.829 Elevated white blood cell count, unspecified